=== PATIENT | male | born 1970 | race African-American/Black ===

== ENCOUNTER 2016-08-21 18:18 | Emergency (ER) | payer MEDICAID ==
[~2016-08-21] VITALS: Ht 180.3 cm; Wt 70.4 kg
[2016-08-21] MEDS ORDERED: hiv meds PO (18:34)
[2016-08-21 19:41] VITALS: BP 118/81
== END 2016-08-21 20:01 | disposition home or self-care (01) ==
LOC: EMS 18:20
DX: G56.32 Lesion of radial nerve, left upper limb (principal); Z88.0 Allergy status to penicillin
CPT/HCPCS: 99283

== ENCOUNTER 2018-07-16 15:50 | Emergency (ER) | payer MEDICAID, OTHER ==
[~2018-07-16] VITALS: Ht 180.3 cm; Wt 77.7 kg
[~2018-07-16 15:50] MED LIST: hiv meds PO
[2018-07-16] MEDS ORDERED: LANS15CA17 PO (16:01)
[2018-07-16] MEDS ORDERED: LIDOCAINE 5% TRANSDERMAL PATCH TD ONE (16:45)
[2018-07-16] MEDS ORDERED: KETOROLAC TROMETHAMINE 30 MG/ML VIAL IM ONE (16:45)
[2018-07-16] MEDS ORDERED: CYCLOBENZAPRINE HCL 10 MG TABLET PO ONE (16:45)
[2018-07-16 17:28] VITALS: BP 132/92
== END 2018-07-16 18:08 | disposition home or self-care (01) ==
LOC: EMS 15:51
DX: M47.896 Other spondylosis, lumbar region (principal); M16.0 Bilateral primary osteoarthritis of hip; F41.9 Anxiety disorder, unspecified; Z79.899 Other long term (current) drug therapy; Z88.0 Allergy status to penicillin
CPT/HCPCS: 72100; 73502; 96372; 99283; J1885

== ENCOUNTER 2018-09-23 14:23 | Emergency (ER) | payer OTHER ==
[~2018-09-23] VITALS: Ht 180.3 cm; Wt 75.0 kg
[~2018-09-23 14:23] MED LIST changes: +LANS15CA17 PO
[2018-09-23] MEDS ORDERED: HYDROCODONE/ACETAMINOPHEN 5-325 MG TABLET PO ONE (15:00)
[2018-09-23 15:45] LABS: BASOPHILS % (AUTO) 0.7 % (0.0-2.0); EOSINOPHILS % (AUTO) 1.4 % (1.0-6.0); HEMATOCRIT 38.2 % (41-53); HEMOGLOBIN 12.9 g/dL (13.5-17.5); LYMPHOCYTES % (AUTO) 23.5 % (22.0-44.0); MEAN CORPUSCULAR HEMOGLOBIN 34.9 pg (26.0-34.0); MEAN CORPUSCULAR HGB CONC 33.8 G/dL (31.0-37.0); MEAN CORPUSCULAR VOLUME 103 fL (80-100); MONOCYTES # (AUTO) 0.5 K/uL (0.1-1.0); MONOCYTES % (AUTO) 12.6 % (2.0-9.0); NEUTROPHILS # (AUTO) 2.6 K/uL (1.8-7.7); NEUTROPHILS % (AUTO) 61.8 % (40.0-70.0); PLATELET COUNT (AUTO) 224 K/uL (150-450); RED BLOOD CELL COUNT(AUTO) 3.71 MIL/uL (4.50-5.90); RED CELL DISTRIBUTION WIDTH 14.4 % (11.5-14.5)
[2018-09-23] MEDS ORDERED: SODIUM CHLORIDE 0.9% 100 ML ONE (15:48)
[2018-09-23] MEDS ORDERED: IOVERSOL 320 MG/ML 100 ML VIAL ONE (15:48)
[2018-09-23 16:01] LABS: ANION GAP 10 mmol/L (8-16); CALCIUM, TOTAL 9.1 mg/dL (8.8-10.5); CARBON DIOXIDE 29 mmol/L (22-29); CHLORIDE 104 mmol/L (98-107); CREATININE 1.02 mg/dL (0.60-1.30); GLOMERULAR FILTR. RATE CALC > 60 mL/min (>60); GLUCOSE,RANDOM 96 mg/dL (70-110); POTASSIUM 3.9 mmol/L (3.5-5.1); SODIUM SERUM 143 mmol/L (136-145); UREA NITROGEN, BLOOD 22 mg/dL (7-18)
[2018-09-23 16:07] LABS: ALANINE AMINOTRANSFERASE 32 U/L (12-78); ALBUMIN 3.4 g/dL (3.4-5.0); ALKALINE PHOSPHATASE 56 U/L (46-116); ASPARTATE AMINOTRANSFERASE 34 U/L (15-37); BILIRUBIN,TOTAL 0.3 mg/dL (0.1-1.0); TOTAL PROTEIN, SERUM 6.9 g/dL (6.4-8.2)
[2018-09-23 19:30] VITALS: BP 121/76
== END 2018-09-23 20:40 | disposition home or self-care (01) ==
LOC: EMS 14:23
DX: S06.0X1A Concussion with loss of consciousness of 30 minutes or less, initial encounter (principal); S63.501A Unspecified sprain of right wrist, initial encounter; S80.02XA Contusion of left knee, initial encounter; S80.01XA Contusion of right knee, initial encounter; S50.811A Abrasion of right forearm, initial encounter; F41.9 Anxiety disorder, unspecified; Z88.0 Allergy status to penicillin; V29.49XA Motorcycle driver injured in collision with other motor vehicles in traffic accident, initial encounter; Y93.89 Activity, other specified; Y92.89 Other specified places as the place of occurrence of the external cause; Y99.8 Other external cause status
CPT/HCPCS: 29125; 36415; 70450; 71260; 72125; 73090; 73110; 73610; 74177; 80053; 85025; 99284; J7050; Q9967; 72193; 74160

== ENCOUNTER 2018-11-09 04:04 | Emergency (ER) | payer OTHER ==
[~2018-11-09] VITALS: Ht 180.3 cm; Wt 75.0 kg
[~2018-11-09 04:04] MED LIST changes: +APIX5TAB PO; +TRAM50TA4 PO
[2018-11-09] MEDS ORDERED: RIVA10 PO (04:13)
[2018-11-09] MEDS ORDERED: NITROGLYCERIN 0.4 MG SUBLINGUAL TABLET #25 SL ONE (04:45)
[2018-11-09 04:51] LABS: BASOPHILS % (AUTO) 0.9 % (0.0-2.0); EOSINOPHILS % (AUTO) 1.7 % (1.0-6.0); HEMOGLOBIN 13.5 g/dL (13.5-17.5); LYMPHOCYTES # (AUTO) 1.4 K/uL (1.0-4.8); LYMPHOCYTES % (AUTO) 34.5 % (22.0-44.0); MEAN CORPUSCULAR HEMOGLOBIN 35.2 pg (26.0-34.0); MEAN CORPUSCULAR HGB CONC 33.7 G/dL (31.0-37.0); MEAN CORPUSCULAR VOLUME 105 fL (80-100); MONOCYTES # (AUTO) 0.5 K/uL (0.1-1.0); MONOCYTES % (AUTO) 13.2 % (2.0-9.0); NEUTROPHILS % (AUTO) 49.7 % (40.0-70.0); PLATELET COUNT (AUTO) 190 K/uL (150-450); RED BLOOD CELL COUNT(AUTO) 3.82 MIL/uL (4.50-5.90); RED CELL DISTRIBUTION WIDTH 14.3 % (11.5-14.5)
[2018-11-09 04:59] LABS: ANION GAP 8 mmol/L (8-16); CALCIUM, TOTAL 9.3 mg/dL (8.8-10.5); CARBON DIOXIDE 28 mmol/L (22-29); CHLORIDE 102 mmol/L (98-107); CREATININE 1.09 mg/dL (0.60-1.30); GLOMERULAR FILTR. RATE CALC > 60 mL/min (>60); GLUCOSE,RANDOM 100 mg/dL (70-110); POTASSIUM 3.7 mmol/L (3.5-5.1); SODIUM SERUM 138 mmol/L (136-145); UREA NITROGEN, BLOOD 19 mg/dL (7-18)
[2018-11-09 05:06] LABS: D-DIMER 0.17 mg/L FEU (0.00-0.50); INR 0.9 (0.9-1.1); PROTHROMBIN TIME 9.3 SEC (9.4-11.6)
[2018-11-09] MEDS ORDERED: RIVA20TA PO (05:07)
[2018-11-09 05:17] LABS: APPEARANCE,URINE CLOUDY (CLEAR); BILIRUBIN,URINE NEGATIVE (NEGATIVE); GLUCOSE, URINE (UA) NEGATIVE (NEGATIVE); KETONES,URINE NEGATIVE (NEGATIVE); LEUKOCYTE ESTERASE ,URINE NEGATIVE (NEGATIVE); NITRATE,URINE NEGATIVE (NEGATIVE); OCCULT BLOOD,URINE NEGATIVE (NEGATIVE); PROTEIN,URINE NEGATIVE (NEGATIVE); UROBILINOGEN,URINE 0.2 mg/dL (<=1.0)
[2018-11-09 05:22] LABS: B-TYPE NATRIURETIC PEPTIDE 14 pg/mL (0-100)
[2018-11-09 05:24] LABS: ALANINE AMINOTRANSFERASE 41 U/L (12-78); ALBUMIN 3.2 g/dL (3.4-5.0); ALKALINE PHOSPHATASE 87 U/L (46-116); ASPARTATE AMINOTRANSFERASE 29 U/L (15-37); BILIRUBIN,TOTAL 0.4 mg/dL (0.1-1.0); CREATINE KINASE, TOTAL ONLY 80 U/L (39-308); TOTAL PROTEIN, SERUM 6.9 g/dL (6.4-8.2)
[2018-11-09 05:31] VITALS: BP 116/74
== END 2018-11-09 06:15 | disposition home or self-care (01) ==
LOC: EMS 04:07
DX: S22.31XD Fracture of one rib, right side, subsequent encounter for fracture with routine healing (principal); I26.99 Other pulmonary embolism without acute cor pulmonale; F41.9 Anxiety disorder, unspecified; Z90.49 Acquired absence of other specified parts of digestive tract; Z88.0 Allergy status to penicillin; V29.9XXD Motorcycle rider (driver) (passenger) injured in unspecified traffic accident, subsequent encounter
CPT/HCPCS: 85379; 93005

== ENCOUNTER 2018-11-28 06:59 | Inpatient (IN) | payer OTHER ==
[~2018-11-28] VITALS: Ht 180.3 cm; Wt 69.4 kg
[~2018-11-28 06:59] MED LIST changes: -APIX5TAB PO; -LANS15CA17 PO; +RIVA20TA PO; -TRAM50TA4 PO
[2018-11-28] MEDS ORDERED: ONDANSETRON HCL 4 MG/2 ML VIAL IVP ONE (07:15)
[2018-11-28] MEDS ORDERED: SODIUM CHLORIDE 0.9% 1,000 ML IV ONE (07:15)
[2018-11-28] MEDS ORDERED: IOVERSOL 350 MG/ML 100 ML VIAL ONE (07:40)
[2018-11-28] MEDS ORDERED: SODIUM CHLORIDE 0.9% 100 ML ONE (07:41)
[2018-11-28 07:45] LABS: BASOPHILS % (AUTO) 0.3 % (0.0-2.0); EOSINOPHILS % (AUTO) 0 % (1.0-6.0); HEMATOCRIT 40.7 % (41-53); HEMOGLOBIN 14.2 g/dL (13.5-17.5); LYMPHOCYTES # (AUTO) 0.7 K/uL (1.0-4.8); LYMPHOCYTES % (AUTO) 11.7 % (22.0-44.0); MEAN CORPUSCULAR HEMOGLOBIN 35.7 pg (26.0-34.0); MEAN CORPUSCULAR HGB CONC 34.8 G/dL (31.0-37.0); MEAN CORPUSCULAR VOLUME 102 fL (80-100); MONOCYTES # (AUTO) 0.8 K/uL (0.1-1.0); MONOCYTES % (AUTO) 12.7 % (2.0-9.0); NEUTROPHILS # (AUTO) 4.7 K/uL (1.8-7.7); NEUTROPHILS % (AUTO) 75.3 % (40.0-70.0); PLATELET COUNT (AUTO) 205 K/uL (150-450); RED BLOOD CELL COUNT(AUTO) 3.97 MIL/uL (4.50-5.90); RED CELL DISTRIBUTION WIDTH 13.5 % (11.5-14.5)
[2018-11-28] MEDS ORDERED: PANTOPRAZOLE SODIUM 40 MG/VIAL IVP ONE (07:45)
[2018-11-28 07:56] LABS: ANION GAP 11 mmol/L (8-16); CALCIUM, TOTAL 9.7 mg/dL (8.8-10.5); CARBON DIOXIDE 29 mmol/L (22-29); CHLORIDE 93 mmol/L (98-107); CREATININE 1.17 mg/dL (0.60-1.30); GLOMERULAR FILTR. RATE CALC > 60 mL/min (>60); GLUCOSE,RANDOM 140 mg/dL (70-110); POTASSIUM 4.7 mmol/L (3.5-5.1); SODIUM SERUM 133 mmol/L (136-145); UREA NITROGEN, BLOOD 24 mg/dL (7-18)
[2018-11-28 07:58] LABS: PROTHROMBIN TIME 10.7 SEC (9.4-11.6)
[2018-11-28 08:02] LABS: ALANINE AMINOTRANSFERASE 54 U/L (12-78); ALBUMIN 3.8 g/dL (3.4-5.0); ALKALINE PHOSPHATASE 60 U/L (46-116); BILIRUBIN,TOTAL 0.4 mg/dL (0.1-1.0); LIPASE 93 U/L (73-393)
[2018-11-28 08:04] LABS: OCCULT BLOOD,GASTRIC FLUID NEGATIVE (NEGATIVE)
[2018-11-28 08:12] LABS: ASPARTATE AMINOTRANSFERASE 47 U/L (15-37)
[2018-11-28 08:30] LABS: APPEARANCE,URINE CLEAR (CLEAR); BILIRUBIN,URINE NEGATIVE (NEGATIVE); GLUCOSE, URINE (UA) NEGATIVE (NEGATIVE); KETONES,URINE >=80 mg/dL (NEGATIVE); LEUKOCYTE ESTERASE ,URINE NEGATIVE (NEGATIVE); NITRATE,URINE NEGATIVE (NEGATIVE); OCCULT BLOOD,URINE TRACE (NEGATIVE); PROTEIN,URINE TRACE (NEGATIVE); UROBILINOGEN,URINE 0.2 mg/dL (<=1.0)
[2018-11-28] MEDS: PANTOPRAZOLE SODIUM 80 MG in SODIUM CHLORIDE 0.9% 100 ML IV SCH ×2 (08:31→18:57)
[2018-11-28 08:41] LABS: BACTERIA,URINE None Seen /HPF (None Seen); RBC,URINE None Seen /HPF (0-2); SQUAMOUS EPITHELIAL CELL,UR Few /LPF (None Seen); WBC,URINE 0-2 /HPF (0-5)
[2018-11-28] MEDS ORDERED: 0.9% SODIUM CHLORIDE 10 ML SYRINGE IVP PRN (10:00)
[2018-11-28 12:04] VITALS: BP 140/96
[2018-11-28 16:54] VITALS: BP 132/76
[2018-11-28 18:31] VITALS: BP 132/98
[2018-11-28] MEDS ORDERED: ACETAMINOPHEN 325 MG TABLET PO PRN (20:00)
[2018-11-28] MEDS ORDERED: ONDANSETRON HCL 4 MG/2 ML VIAL IVP PRN (20:00)
[2018-11-28 20:13] VITALS: BP 131/83
[2018-11-29] VITALS (8 sets, daily range): BP systolic 103–141; BP diastolic 63–96
[2018-11-29 05:49] LABS: BASOPHILS % (AUTO) 0.3 % (0.0-2.0); EOSINOPHILS % (AUTO) 1.3 % (1.0-6.0); HEMATOCRIT 37.5 % (41-53); HEMOGLOBIN 13.1 g/dL (13.5-17.5); LYMPHOCYTES # (AUTO) 0.9 K/uL (1.0-4.8); LYMPHOCYTES % (AUTO) 24.7 % (22.0-44.0); MEAN CORPUSCULAR HEMOGLOBIN 35.8 pg (26.0-34.0); MEAN CORPUSCULAR HGB CONC 34.9 G/dL (31.0-37.0); MEAN CORPUSCULAR VOLUME 103 fL (80-100); MONOCYTES # (AUTO) 0.4 K/uL (0.1-1.0); MONOCYTES % (AUTO) 9.3 % (2.0-9.0); NEUTROPHILS # (AUTO) 2.5 K/uL (1.8-7.7); NEUTROPHILS % (AUTO) 64.4 % (40.0-70.0); PLATELET COUNT (AUTO) 157 K/uL (150-450); RED BLOOD CELL COUNT(AUTO) 3.66 MIL/uL (4.50-5.90); RED CELL DISTRIBUTION WIDTH 13.5 % (11.5-14.5)
[2018-11-29 06:05] LABS: ALANINE AMINOTRANSFERASE 43 U/L (12-78); ALBUMIN 3.3 g/dL (3.4-5.0); ALKALINE PHOSPHATASE 53 U/L (46-116); ANION GAP 7 mmol/L (8-16); ASPARTATE AMINOTRANSFERASE 52 U/L (15-37); BILIRUBIN,TOTAL 0.7 mg/dL (0.1-1.0); CALCIUM, TOTAL 8.7 mg/dL (8.8-10.5); CARBON DIOXIDE 30 mmol/L (22-29); CHLORIDE 99 mmol/L (98-107); CREATININE 1.05 mg/dL (0.60-1.30); GLOMERULAR FILTR. RATE CALC > 60 mL/min (>60); GLUCOSE,RANDOM 92 mg/dL (70-110); POTASSIUM 3.7 mmol/L (3.5-5.1); SODIUM SERUM 136 mmol/L (136-145); TOTAL PROTEIN, SERUM 6.8 g/dL (6.4-8.2); UREA NITROGEN, BLOOD 9 mg/dL (7-18)
[2018-11-29] MEDS ORDERED: BISACODYL 10 MG RECTAL RECTAL SUPPOSITORY PR PRN (07:00)
[2018-11-29] MEDS ORDERED: MAGNESIUM HYDROXIDE SUSPENSION 30 ML UDCUP PO PRN (07:00)
[2018-11-29] MEDS ORDERED: IPRATROPIUM BROMIDE 0.5 MG/2.5 ML NEB SOLUTION NEB PRN (07:00)
[2018-11-29] MEDS ORDERED: ZOLPIDEM TARTRATE 5 MG TABLET PO PRN (07:00)
[2018-11-29] MEDS ORDERED: ALBUTEROL SULFATE 2.5 MG/0.5 ML NEB SOLUTION NEB PRN (07:00)
[2018-11-29] MEDS ORDERED: ACETAMINOPHEN 325 MG TABLET PO PRN (07:00)
[2018-11-29] MEDS ORDERED: ONDANSETRON HCL 4 MG/2 ML VIAL IVP PRN (07:00)
[2018-11-29] MEDS ORDERED: HYDROCODONE/ACETAMINOPHEN 5-325 MG TABLET PO PRN (07:00)
[2018-11-29] MEDS ORDERED: PANTOPRAZOLE SODIUM 80 MG in SODIUM CHLORIDE 0.9% 100 ML IV SCH (07:30)
[2018-11-29] MEDS: DOCUSATE SODIUM 100 MG CAPSULE PO SCH ×2 (08:01→20:13)
[2018-11-29] MEDS: MORPHINE SULFATE 2 MG/ML SYRINGE IVP PRN ×3 (08:05→23:11)
[2018-11-29] MEDS ORDERED: SODIUM CHLORIDE 0.9% 1,000 ML IV ONE ×2 (13:57→14:00)
[2018-11-29] MEDS: PANTOPRAZOLE SODIUM 40 MG DR TABLET PO SCH (20:13)
[2018-11-30] MEDS ORDERED: PROPOFOL 1% 20 ML VIAL IVP ONE (02:37)
[2018-11-30] MEDS ORDERED: LIDOCAINE/PF 2% 5 ML VIAL IM ONE (02:37)
[2018-11-30 04:25] VITALS: BP 111/73
[2018-11-30] MEDS: MORPHINE SULFATE 2 MG/ML SYRINGE IVP PRN ×3 (04:33→14:37)
[2018-11-30 07:20] VITALS: BP 112/72
[2018-11-30] MEDS: DOCUSATE SODIUM 100 MG CAPSULE PO SCH ×2 (08:37→20:01)
[2018-11-30] MEDS: PANTOPRAZOLE SODIUM 40 MG DR TABLET PO SCH ×2 (08:37→20:01)
[2018-11-30 11:40] VITALS: BP 124/76
[2018-11-30 14:41] LABS: BASOPHILS % (AUTO) 0.8 % (0.0-2.0); EOSINOPHILS % (AUTO) 1.5 % (1.0-6.0); HEMOGLOBIN 13.9 g/dL (13.5-17.5); LYMPHOCYTES # (AUTO) 1.2 K/uL (1.0-4.8); LYMPHOCYTES % (AUTO) 37.5 % (22.0-44.0); MEAN CORPUSCULAR HEMOGLOBIN 35.9 pg (26.0-34.0); MEAN CORPUSCULAR HGB CONC 33.9 G/dL (31.0-37.0); MEAN CORPUSCULAR VOLUME 106 fL (80-100); MONOCYTES # (AUTO) 0.3 K/uL (0.1-1.0); MONOCYTES % (AUTO) 10.3 % (2.0-9.0); NEUTROPHILS # (AUTO) 1.6 K/uL (1.8-7.7); NEUTROPHILS % (AUTO) 49.9 % (40.0-70.0); PLATELET COUNT (AUTO) 170 K/uL (150-450); RED BLOOD CELL COUNT(AUTO) 3.87 MIL/uL (4.50-5.90); RED CELL DISTRIBUTION WIDTH 13.9 % (11.5-14.5)
[2018-11-30] MEDS ORDERED: PANT40TA25 PO (14:50)
[2018-11-30 15:27] LABS: PLATELET MORPHOLOGY COMMENT NORMAL
[2018-11-30 19:27] VITALS: BP 118/76
[2018-11-30 23:49] VITALS: BP 114/80
[2018-12-01 04:57] VITALS: BP 100/57
[2018-12-01 08:42] VITALS: BP 115/70
[2018-12-01] MEDS: DOCUSATE SODIUM 100 MG CAPSULE PO SCH (09:34)
[2018-12-01] MEDS: PANTOPRAZOLE SODIUM 40 MG DR TABLET PO SCH (09:35)
[2018-12-01 11:33] VITALS: BP 136/185
== END 2018-12-01 12:50 | disposition home or self-care (01) | DRG 241 ==
LOC: EMS 06:59 → AHU 11:02 → 5S 18:05
PROVIDERS: ADMIT Hospitalist; ATTEND Hospitalist
PROC: 0DB68ZX Excision of Stomach, Via Natural or Artificial Opening Endoscopic, Diagnostic (ICD-10-PCS; principal; 2018-11-29 15:00)
DX: K29.71 Gastritis, unspecified, with bleeding (principal); B20 Human immunodeficiency virus [HIV] disease; D68.9 Coagulation defect, unspecified; K76.0 Fatty (change of) liver, not elsewhere classified; F41.9 Anxiety disorder, unspecified; G89.29 Other chronic pain; K20.9 Esophagitis, unspecified; K44.9 Diaphragmatic hernia without obstruction or gangrene; Z79.01 Long term (current) use of anticoagulants; Z87.11 Personal history of peptic ulcer disease; Z86.711 Personal history of pulmonary embolism; Z88.0 Allergy status to penicillin; Z79.899 Other long term (current) drug therapy; Z90.49 Acquired absence of other specified parts of digestive tract
CPT/HCPCS: 70450; 74177; 82271; 86850; 86900; 86901; 88305; 88312; 88313; 93005; C9113; G0378; J2270; J2405; J2704; J3490; J7030; J7050